=== PATIENT | female | born 1990 | race Caucasian/White ===

== ENCOUNTER → 2017-10-08 12:07 | Outpatient (CLI) | payer OTHER, SELFPAY ==
[2017-10-09 08:25] LABS: HIV Screen 4th Generation wRfx Non Reactive (Non Reactive)
[2017-10-09 11:13] LABS: HSV 2 IgG, Type Spec <0.91 index (0.00-0.90)
== END ==
PROVIDERS: PCP Internal Medicine Adolescent Medicine; Visit Provider Nurse Practitioner Obstetrics & Gynecology
DX: Z01.419 Encounter for gynecological examination (general) (routine) without abnormal findings (principal); Z20.2 Contact with and (suspected) exposure to infections with a predominantly sexual mode of transmission
CPT/HCPCS: 36415; 86703; 86790; G0432

== ENCOUNTER → 2018-01-15 07:38 | Outpatient (CLI) | payer OTHER, SELFPAY ==
--- NOTE | 2018-01-15 07:30 | US_ITS ---
US gallbladder HISTORY: Right upper quadrant pain with nausea ITS.REASON: RUQ PAIN ORDERING PHYSICIAN: Sadie Connors PATIENT AGE: 27 years COMPARISON: FINDINGS: PANCREAS: Unremarkable. No obvious mass or abnormal fluid collection. No ductal dilatation LIVER: No focal liver lesions demonstrated. Homogeneous echogenicity. No intrahepatic biliary ductal dilatation evident RIGHT KIDNEY: Unremarkable. Normal size and echogenicity. No hydronephrosis GALLBLADDER: No gallstones, gallbladder wall thickening, pericholecystic fluid, or biliary dilatation. There are 2 small areas of increased echogenicity along the gallbladder wall consistent with small polyps. IMPRESSION: 1. Small gallbladder polyps. 2. Otherwise negative right upper quadrant ultrasound
== END ==
PROVIDERS: Family Provider Internal Medicine Adolescent Medicine; PCP Internal Medicine Adolescent Medicine; Visit Provider Nurse Practitioner
DX: R10.11 Right upper quadrant pain (principal); R11.0 Nausea
CPT/HCPCS: 76705

== ENCOUNTER → 2018-04-23 14:46 | Outpatient (CLI) | payer OTHER, SELFPAY ==
--- NOTE | 2018-04-23 14:51 | XR_ITS ---
XR foot RT min 3V HISTORY: ITS.REASON: foot pain ORDERING PHYSICIAN: Waqar Romero MD PATIENT AGE: 28 years COMPARISON: None FINDINGS: No fracture or dislocation. No lytic or blastic change. There is normal mineralization.. The joint spaces are well-preserved. No significant degenerative/arthritic changes. No erosive changes evident. IMPRESSION: Negative, no acute finding
== END ==
PROVIDERS: Visit Provider Emergency Medicine
DX: M79.671 Pain in right foot (principal)
CPT/HCPCS: 73630

== ENCOUNTER → 2018-05-25 10:12 | Outpatient (POV) | payer OTHER, SELFPAY ==
[2018-05-25 10:41] VITALS: BP 113/62; PULSE 84; RESP 18; TEMP 36.6; O2SAT 98; BMI 27.4
--- NOTE | 2018-05-25 11:04 | HMH.PMCON ---
Assessment and Plan (1) Back pain Current visit: Yes Status: Chronic Qualifiers: Back pain location: low back pain Chronicity: chronic Back pain laterality: midline Sciatica presence: with sciatica Sciatica laterality: bilateral sciatica Qualified Code(s): M54.41 - Lumbago with sciatica, right side; M54.42 - Lumbago with sciatica, left side; G89.29 - Other chronic pain Category: Medical Code(s): M54.9 - Dorsalgia, unspecified - Assessment and plan all Dx Assessment and Plan for all problems:: We will schedule an MRI for the patient to determine any underlying issues. I do have some concerns in regards to the radicular pattern of her pain. We will also start her on gabapentin 100 mg 1 p.o. 3 times daily. Patient is again to begin this at nighttime and titrate up as tolerated. I will follow-up with the patient after her MRI. Dr. Siddiqui is reviewed this chart and agrees with this plan of care. This note was dictated using voice recognition software and may contain errors or omissions HPI - Data of Consult Consult date: 05/25/18 Requesting Physician: Astrid Murillo APRN Primary Care Provider: Rocky Hamilton MD Family Provider: Rocky Hamilton MD - Consult Narrative Reason for consult: Back pain History of present illness: Ms. Valdes is a 28 year old female presents today for consultation in regards to her low back pain. Patient has had intermittent back pain for years however a few months ago she has had quite an increase in her low back pain in her radiation into her hips and legs. Patient's tried and failed Cymbalta and diclofenac. Patient states she feels a constant pressure. Patient does not have any diagnostic imaging at this point. Patient rates her pain a 6 out of 10 today. Patient states that it is constant, sharp, aching at times. CC: Astrid Murillo APRN [facility] History I have reviewed the patient's past medical history: Yes Medical History: Reports:: Anxiety Denies:: Cancer, Diabetes Mellitus Type 1, Diabetes Mellitus Type 2, MRSA Other Surgeries: Yes: Appendectomy, Dilation and Curettage Amputation: No Fractures: No - *Social History Educational Level: Completed College Smoking Status: Current every day smoker Tobacco Type: cigarettes # Packs/Day (cigarettes): 1 #Yrs smoked (if former smoker): 6 Alcohol Intake: never Substance Use Type: denies use Occupational Status: employed Housing: house Household Members: significant other - Psychiatric History Expresses thoughts of harming self/others: None Suicide Plan Description: No Plan Pschychiatric History:: Reports:: Anxiety *Family Hx:: Hypertension, Hyperlipidemia, Diabetes, Cancer Review of Systems - Review of Systems ROS General: no recent weight change, no fever, no sleep disturbances Respiratory: no cough, no shortness of air, no recurring pulmonary infections Cardiovascular/Peripheral Vascular: No chest pain, No palpitations, no edema, no shortness of breath. Gastrointestinal: no incontinence, normal bowel movements reported Genitourinary: no incontinence Musculoskeletal: Back pain, hip pain Psychiatric: normal mood/ affect Neurological: [denies weakness in extremities], [denies balance issues] Meds Home Medications Medication Instructions Recorded Confirmed Type duloxetine 30 mg capsule,delayed 60 mg PO DAILY cap 10/08/17 05/25/18 History release Allergies Allergy/AdvReac Type Severity Reaction Status Date / Time aspirin [ASPIRIN] Allergy Unknown NA-NAUSEA/V Unverified 08/25/17 14:47 OMITING penicillin G [PENICILLIN G] Allergy Unknown Unverified 08/25/17 14:47 Objective Vital signs: Temp Pulse Resp BP Pulse Ox 97.8 F 84 18 113/62 98 05/25/18 10:41 05/25/18 10:41 05/25/18 10:41 05/25/18 10:41 05/25/18 10:41 Narrative: Physical Exam General: Alert and oriented x3, no acute distress, pleasant and cooperative, [on room air] Alla
--- NOTE | 2018-05-25 11:07 | P.CONS_ITS ---
Assessment and Plan (1) Back pain Current visit: Yes Status: Chronic Qualifiers: Back pain location: low back pain Chronicity: chronic Back pain laterality: midline Sciatica presence: with sciatica Sciatica laterality: bilateral sciatica Qualified Code(s): M54.41 - Lumbago with sciatica, right side; M54.42 - Lumbago with sciatica, left side; G89.29 - Other chronic pain Category: Medical Code(s): M54.9 - Dorsalgia, unspecified - Assessment and plan all Dx Assessment and Plan for all problems:: We will schedule an MRI for the patient to determine any underlying issues. I do have some concerns in regards to the radicular pattern of her pain. We will also start her on gabapentin 100 mg 1 p.o. 3 times daily. Patient is again to begin this at nighttime and titrate up as tolerated. I will follow-up with the patient after her MRI. Dr. Siddiqui is reviewed this chart and agrees with this plan of care. This note was dictated using voice recognition software and may contain errors or omissions HPI - Data of Consult Consult date: 05/25/18 Requesting Physician: Astrid Murillo APRN Primary Care Provider: Rocky Hamilton MD Family Provider: Rocky Hamilton MD - Consult Narrative Reason for consult: Back pain History of present illness: Ms. Valdes is a 28 year old female presents today for consultation in regards to her low back pain. Patient has had intermittent back pain for years however a few months ago she has had quite an increase in her low back pain in her radiation into her hips and legs. Patient's tried and failed Cymbalta and diclofenac. Patient states she feels a constant pressure. Patient does not h ave any diagnostic imaging at this point. Patient rates her pain a 6 out of 10 today. Patient states that it is constant, sharp, aching at times. CC: Astrid Murillo APRN [facility] History I have reviewed the patient's past medical history: Yes Medical History: Reports:: Anxiety Denies:: Cancer, Diabetes Mellitus Type 1, Diabetes Mellitus Type 2, MRSA Other Surgeries: Yes: Appendectomy, Dilation and Curettage Amputation: No Fractures: No - *Social History Educational Level: Completed College Smoking Status: Current every day smoker Tobacco Type: cigarettes # Packs/Day (cigarettes): 1 #Yrs smoked (if former smoker): 6 Alcohol Intake: never Substance Use Type: denies use Occupational Status: employed Housing: house Household Members: significant other - Psychiatric History Expresses thoughts of harming self/others: None Suicide Plan Description: No Plan Pschychiatric History:: Reports:: Anxiety *Family Hx:: Hypertension, Hyperlipidemia, Diabetes, Cancer Review of Systems - Review of Systems ROS General: no recent weight change, no fever, no sleep disturbances Respiratory: no cough, no shortness of air, no recurring pulmonary infections Cardiovascular/Peripheral Vascular: No chest pain, No palpitations, no edema, no shortness of breath. Gastrointestinal: no incontinence, normal bowel movements reported Genitourinary: no incontinence Musculoskeletal: Back pain, hip pain Psychiatric: normal mood/ affect Neurological: [denies weakness in extremities], [denies balance issues] Meds Home Medications Medication Instructions Recorded Confirmed Type duloxetine 30 mg capsule,delayed 60 mg PO DAILY cap 10/08/17 05/25/18 History release Allergies
== END ==
PROVIDERS: Family Provider Internal Medicine Adolescent Medicine; PCP Internal Medicine Adolescent Medicine; Visit Provider Clinical Nurse Specialist Family Health
DX: M54.41 Lumbago with sciatica, right side (principal); M54.42 Lumbago with sciatica, left side; G89.29 Other chronic pain
CPT/HCPCS: 99202

== ENCOUNTER → 2018-05-27 13:22 | Outpatient (CLI) | payer OTHER, SELFPAY ==
--- NOTE | 2018-05-27 13:28 | MR_ITS ---
MR lumbar spine wo con, MR 3-d myelogram/MRCP HISTORY: Worsening low back pain with bilateral hip pain and right leg and buttock pain. Bilateral Hip pain. Intermittent RT leg and buttox pain. ITS.REASON: BACK PAIN ORDERING PHYSICIAN: Astrid Murillo PATIENT AGE: 28 years Comparison: X-RAY 03-14-14 TECHNIQUE: Standard multiplanar multiecho sequences are performed without contrast. 3-D MIP and myelographic images are also rendered and reviewed FINDINGS: There is normal alignment. The spinal cord ends at the L1 level. There is straightening of the lumbar lordosis nonspecific but could be seen with muscle spasm. L1-L2, L2-L3, and L4-L5 have an unremarkable appearance There is minimal bulging disc at L3-L4 without impingement. L5-S1: Concentric bulging disc with a small central/right paracentral disc protrusion. This abuts the anterior aspect of the right S1 nerve root without displacement. IMPRESSION: 1. Concentric bulging disc at L5-S1 with a small central/right paracentral disc protrusion. This abuts the anterior aspect of the right S1 nerve root without displacement 2. No extruded herniated disc or canal stenosis
== END ==
PROVIDERS: Family Provider Internal Medicine Adolescent Medicine; PCP Internal Medicine Adolescent Medicine; Visit Provider Clinical Nurse Specialist Family Health
DX: M54.5 Low back pain (principal)
CPT/HCPCS: 72148; 76376

== ENCOUNTER → 2018-08-26 09:40 | Outpatient (CLI) | payer OTHER, SELFPAY ==
--- NOTE | 2018-08-26 09:41 | XR_ITS ---
XR wrist RT min 3V HISTORY ITS.REASON: GANGLION CYST RT WRIST ORDERING PHYSICIAN: Chelle Calvin MD PATIENT AGE: 28 years Comparison: (10/10/2002. FINDINGS: No fracture or dislocation. No lytic or blastic change. There is normal mineralization.. The joint spaces are well-preserved. No significant degenerative/arthritic changes. No erosive changes evident.. IMPRESSION: Negative wrist
== END ==
PROVIDERS: PCP Internal Medicine Adolescent Medicine; Visit Provider Orthopaedic Surgery
DX: M67.40 Ganglion, unspecified site (principal)
CPT/HCPCS: 73110

== ENCOUNTER 2018-08-26 10:29 | Outpatient (RCR) | payer OTHER, SELFPAY | END 2018-08-27 09:13 | disposition home or self-care (01) | LOC: OT 10:29 | PROVIDERS: Visit Provider Orthopaedic Surgery | DX: M67.40 Ganglion, unspecified site (principal) | CPT/HCPCS: 97763 ==

== ENCOUNTER → 2018-09-02 10:45 | Outpatient (CLI) | payer OTHER, SELFPAY ==
[2018-09-02 10:56] LABS: Microscopic, Urine URINE MICROSCOPIC (MICROSCOPIC)
[2018-09-02 11:04] LABS: Appearance,Urine SL CLOUDY (Clear); Bilirubin,Urine Negative (Negative); Blood, Urine TRACE-I (Negative); Color,Urine YELLOW (Yellow); Glucose,Urine (UA) Negative (Negative); Ketones,Urine Negative (Negative); Leukocyte Esterase,Urine 1+ (Negative); Nitrate,Urine POSITIVE (Negative); PH,Urine 6.5 (5.0-8.5); Protein,Urine Negative (Negative); Urobilinogen,Urine 0.2 EU/dl (0.2)
[2018-09-02 11:50] LABS: Bacteria,Urine 3+ /lpf; RBC,Urine Occasional #/hpf (0-3); Squamous Epithelial Cell,Urine Occasional #/hpf (0-5)
== END ==
PROVIDERS: PCP Internal Medicine Adolescent Medicine; Visit Provider Internal Medicine Adolescent Medicine
DX: N39.0 Urinary tract infection, site not specified (principal); M54.5 Low back pain
CPT/HCPCS: 81001; 87086; 87088; 87186

== ENCOUNTER → 2019-04-23 15:08 | Outpatient (CLI) | payer OTHER, SELFPAY ==
--- NOTE | 2019-04-23 15:33 | CT_ITS ---
PROCEDURE: CT ABDOMEN PELVIS WO CON CLINICAL HISTORY: left FLANK PAIN since (per technologist), UTI 1 month, R/O KIDNEY STONE COMPARISON: [facility] CT abdomen pelvis wo con from 09/05/2018 TECHNIQUE: Axial images obtained with sagittal and coronal reformats. All CT scans at the facility use one or more dose reduction, viz: automated exposure control, ma/kV adjustment per patient size (including targeted exams where dose is matched to indication, i.e. head), or iterative reconstruction technique. FINDINGS: Lower thorax the lung bases are clear. Unremarkable.. Heart normal size Abdomen/pelvis-lack of oral and IV contrast decreases sensitivity Noncontrast images of liver, spleen, pancreas, adrenals unremarkable. Gallbladder unremarkable. No stones. No ductal dilatation Kidney/ tract no hydronephrosis. No current urinary tract obstruction evident Right kidney. Faint barely evident, less than 2 mm developing calculus anterior mid right kidney. Nonobstructive Left kidney but stable nonobstructive 2.5-3 mm calculus at mid to lower left kidney again seen with no hydronephrosis. The ureters appear normal in caliber bilaterally but Pelvis: Urinary bladder appears satisfactory with no stones evident. Anteverted uterus. Moderate-sized with bilateral Essure filament are seen extending into the right and left fallopian tube.-similar appearance previous study. Ovaries appear normal in size bilaterally. Right ovary measures 3.1 cm. Both ovaries likely containing small follicles likely. No significant fluid cul-de-sac No free air. No significant free fluid abdomen or pelvis.. But no significant retroperitoneal nor mesenteric nor pelvic adenopathy GI tract. Generous stool throughout the right colon with moderate stool at the transverse and left colon. Mild wall thickness at the hepatic flexure, may benefit from follow-up colonoscopy. On final review I suspect this long segment of mild wall thickening mainly reflex lack of distention although could not exclude some wall thickening related to either colitis. Doubt other process. Correlation required. Small bowel appears normal in caliber and unremarkable.. Appendix is been removed.. Bones: Mild narrowing L5/S1 disc space with diffuse disc bulge at this level.moderate facet arthropathy lower L-spine well can you make sure that severe and passed along those the dictations match mine generally I a.m. signing off and I thank you IMPRESSION: -No acuteFindings in abdomen or pelvis -No urinary tract obstruction. No hydronephrosis. Ureters unremarkable -Small nonobstructive calculi bilaterally again noted Left kidney with near 3 mm dense calculus. Right kidney with only small faint developing calculus -suggestion mild wall thickening hepatic flexure. On final review favor merely reflects lack of distention in this long segment less likely mild colitis. Doubt other pathology Dictated by: Junior Nunn MD 04/23/2019 17:44 Signed by: <Electronically signed by Junior Nunn MD in [place]> 04/23/2019 17:44
== END ==
PROVIDERS: PCP Internal Medicine Adolescent Medicine; Visit Provider Nurse Practitioner Family
DX: R10.9 Unspecified abdominal pain (principal); N39.0 Urinary tract infection, site not specified
CPT/HCPCS: 74176

== ENCOUNTER → 2019-11-11 14:22 | Outpatient (CLI) | payer OTHER, SELFPAY ==
[2019-11-11 14:41] LABS: Basophils # 0.1 K/mm3 (0-0.2); Basophils % 0.7 % (0.1-2.0); Eosinophils # 0.3 K/mm3 (0.0-0.4); Eosinophils % 3.1 % (0.1-12.0); Hemoglobin 14.3 g/dL (12.2-16.2); Lymphocytes # 3.4 K/mm3 (0.7-4.5); Lymphocytes % 32.8 % (10-50); Mean Corpuscular HGB Conc 34.8 g/dL (31.8-35.4); Mean Corpuscular Hemoglobin 31.9 pg (27.0-31.2); Mean Corpuscular Volume 91.5 fl (81-99); Mean Platelet Volume 7.5 fl (7.4-10.4); Monocytes # 0.4 K/mm3 (0.1-1.0); Monocytes % 4.2 % (1.7-9.3); Neutrophils # 6.1 K/mm3 (1.8-7.8); Neutrophils % 59.1 % (37.0-80.0); Platelet Count 376 K/mm3 (142-424); Red Blood Count 4.49 M/mm3 (4.20-5.40); Red Cell Distribution Width 12.5 % (11.5-17.5); White Blood Count 10.3 K/mm3 (4.8-10.8)
[2019-11-11 15:13] LABS: Alanine Aminotransferase 23 U/L (12-78); Albumin Level 5.1 g/dl (3.5-5.0); Albumin/Globulin Ratio 1.5 (1.1-1.8); Alkaline Phosphatase 72 U/L (38-126); Aspartate Amino Transferase 26 U/L (14-36); Bilirubin,Total 0.2 mg/dl (0.2-1.3); Blood Urea Nitrogen 10 mg/dl (7-17); Calcium 10.2 mg/dl (8.4-10.2); Carbon Dioxide 30 mmol/L (22.0-30.0); Chloride 100 mmol/L (98-107); Estimated Glomerular Filt Rate 98 ml/min (>60); GFR (African American) 118 ML/MIN (>60); Globulin 3.3 g/dL (1.3-3.2); Glucose 79 mg/dl (74-100); Magnesium 1.9 mg/dl (1.6-2.3); Sodium 138 mmol/L (136-145); Total Protein,Serum 8.4 g/dl (6.3-8.2)
[2019-11-11 15:26] LABS: T4 (Thyroxine) 9.4 ug/dl (5.53-11.0); Triiodothryronine (T3) Uptake 30 % (23.5-40.5)
[2019-11-11 15:39] LABS: Thyroid Stimulating Hormone 0.91 uIU/mL (0.465-4.68)
[2019-11-13 09:59] LABS: Iron 85 ug/dL (27-159); Iron Saturation 23 % (15-55); UIBC 278 ug/dL (131-425)
[2019-11-13 13:42] LABS: Triiodothyronine (T3) Total 106 ng/dL (71-180)
[2019-11-15 14:59] LABS: Vitamin D 25 Hydroxy 23.7 ng/mL (30.0-100.0)
== END ==
PROVIDERS: PCP Internal Medicine Adolescent Medicine; Visit Provider Family Medicine
DX: Z79.899 Other long term (current) drug therapy (principal); E55.9 Vitamin D deficiency, unspecified
CPT/HCPCS: 80053; 82652; 83540; 83550; 83735; 84436; 84443; 84479; 84480; 85025

== ENCOUNTER → 2020-01-05 18:03 | Outpatient (CLI) | payer OTHER, SELFPAY ==
[2020-01-05 19:49] LABS: Ferritin 26.8 ng/ml (6.24-137)
== END ==
PROVIDERS: PCP Internal Medicine Adolescent Medicine; Visit Provider Nurse Practitioner Family
DX: E83.10 Disorder of iron metabolism, unspecified (principal); G25.81 Restless legs syndrome; N92.0 Excessive and frequent menstruation with regular cycle
CPT/HCPCS: 82728

== ENCOUNTER → 2020-01-10 13:44 | Outpatient (CLI) | payer OTHER, SELFPAY | PROVIDERS: PCP Internal Medicine Adolescent Medicine; Visit Provider Nurse Practitioner Family | DX: G47.19 Other hypersomnia (principal); R06.81 Apnea, not elsewhere classified; Z68.32 Body mass index [BMI] 32.0-32.9, adult; R63.5 Abnormal weight gain; R06.83 Snoring; G25.81 Restless legs syndrome; R53.83 Other fatigue; G47.9 Sleep disorder, unspecified; G47.00 Insomnia, unspecified; G47.30 Sleep apnea, unspecified | CPT/HCPCS: 95806 ==

== ENCOUNTER → 2020-02-05 17:29 | Outpatient (CLI) | payer OTHER, SELFPAY ==
[2020-02-05 18:15] LABS: Coronavirus 19 IgG Antibody Negative (Negative); Coronavirus 19 IgM Antibody Negative (Negative)
== END ==
PROVIDERS: PCP Emergency Medicine; Visit Provider Emergency Medicine
DX: Z03.818 Encounter for observation for suspected exposure to other biological agents ruled out (principal)
CPT/HCPCS: 86328

== ENCOUNTER 2020-07-09 10:03 | Emergency (ER) | payer OTHER, SELFPAY ==
[2020-07-09 10:45] VITALS: BP 133/92; PULSE 100; RESP 16; TEMP 36.6; O2SAT 96; BMI 29.9
--- NOTE | 2020-07-09 10:49 | XR_ITS ---
PROCEDURE: XR CHEST 2V CLINICAL HISTORY: cough Cough and congestion COMPARISON: No exams were available for comparison FINDINGS: The cardiomediastinal silhouette and pulmonary vascularity are within normal limits. The lungs are clear without infiltrates, suspicious nodules, or pleural effusions. No acute bony abnormalities. IMPRESSION: No acute findings. Dictated by: Carlos Lockwood MD 07/09/2020 11:30 Carlos Lockwood MD in [place] 07/09/2020 11:30
--- NOTE | 2020-07-09 11:08 | HMH.EDUTC ---
[facility] [place] Clinical Impression: Acute bronchitis Qualifiers: Bronchitis organism: unspecified organism Qualified Code(s): J20.9 - Acute bronchitis, unspecified Pharyngitis Qualifiers: Pharyngitis/tonsillitis etiology: unspecified etiology Qualified Code(s): J02.9 - Acute pharyngitis, unspecified Disposition: Home, Self-Care Condition on Discharge: Good Instructions: Acute Bronchitis, DI for Acute Bronchitis, Preventing the Spread of Coronavirus Discharge Instructions Additional Instructions: Drink plenty of fluids. Take tylenol for pain or fever. Take the medications as directed. Follow up with your regular doctor. GO TO THE ER FOR ANY WORSENING SYMPTOMS Prescriptions: Albuterol Sulfate [Albuterol Sulfate Hfa] 2 puffs IH Q6HP PRN 30 Days #1 hfa.aer.ad PRN Reason: Shortness Of Breath Transmission Status: Received by [facility] Ondansetron [Zofran 4mg ODT] 4 mg PO Q8HP PRN #20 tab.rapdis PRN Reason: Nausea Transmission Status: Received by [facility] methylPREDNISolone [Medrol] 4 mg PO DIRECTED 6 Days #21 tab.ds.pk Transmission Status: Received by [facility] Azithromycin [Z-Ld 250mg Tab*] 250 mg PO UD DOSE PK #6 tab Transmission Status: Received by [facility] Referrals: Rocky Hamilton MD [Primary Care Provider] - Forms: Work/School Release Time of Disposition: 11:37 Medical Decision Making - Medical Records Medical records reviewed: No: I reviewed the patient's medical records. - [place] Inquiry Pt receiving controlled substance: No Vital Signs: 07/09/20 10:45 07/09/20 11:43 Temperature 97.8 F 97.8 F Temperature Source Oral Pulse Rate 100 H Pulse Rate [Right Brachial] 100 H Respiratory Rate 16 16 Blood Pressure 133/92 H Blood Pressure [Right Arm] 133/92 H Blood Pressure Mean [Right Arm] 105 Blood Pressure Source [Right Arm] Automatic Cuff Blood Pressure Position [Right Arm] Sitting 02 Sat by Pulse Oximetry 96 Oxygen Delivery Method Room Air - Lab Data Lab results reviewed: Yes: I reviewed the patient's lab results. Orders (Tests/Meds): ED MEDICATIONS Discontinued Medications Generic Name Dose Route Start Last Admin Trade Name Freq PRN Reason Stop Dose Admin Ceftriaxone Sodium 1 gm 07/09/20 11:08 07/09/20 11:27 Ceftriaxone 1gm Vial IM 07/09/20 11:09 1 gm ONCE ONE Administration Protocol Lidocaine HCl 0 ml 07/09/20 11:08 07/09/20 11:27 Lidocaine 1% 5ml Pf Vial IM 07/09/20 11:09 2.1 ml ONCE ONE Administration Methylprednisolone Sodium Succinate 125 mg 07/09/20 11:08 07/09/20 11:27 Methylprednisolone Sod Succ 125mg Vial IM 07/09/20 11:09 125 mg ONCE ONE Administration ORDERS Category Date Time Status Covid-19 Nasal PCR ([facility]) Routine Lab 07/09/20 11:15 Received - Radiology Data #1 Image(s): Chest Image Reviewed: Yes I reviewed the patient's radiology image, Yes I have reviewed radiologist's interpretation Preliminary Findings: Normal/NAD, No Infiltrates Seen PROCEDURE: XR CHEST 2V CLINICAL HISTORY: cough Cough and congestion COMPARISON: No exams were available for comparison FINDINGS: The cardiomediastinal silhouette and pulmonary vascularity are within normal limits. The lungs are clear without infiltrates, suspicious nodules, or pleural effusions. No acute bony abnormalities. IMPRESSION: No acute findings. Dictated by: Carlos Lockwood MD 07/09/2020 11:30 in [facility] HPI - General Stated complaint: chest congestion Time Seen by Provider: 07/09/20 11:09 Mode of Arrival: Ambulatory Source of Information: Patient Limitations: No Limitations Description of Symptoms (Recalled from Triage Doc. by RN): PATIENT C/O NASAL AND CHEST CONGESTION AND COUGH SINCE LAST THURSDAY HEENT Symptoms (Recalled from RN notes): Yes Resp Symptoms (Recalled from RN notes): Yes Skin Symptoms (Recalled from RN notes): No MS Symptoms (Recalled from R
[2020-07-09 11:43] VITALS: BP 133/92; PULSE 100; RESP 16; TEMP 36.6; O2SAT 96
== END 2020-07-09 11:45 | disposition home or self-care (01) ==
PROVIDERS: Emergency Provider Nurse Practitioner Family; PCP Internal Medicine Adolescent Medicine
DX: Z20.828 Contact with and (suspected) exposure to other viral communicable diseases (principal); J20.9 Acute bronchitis, unspecified; J02.9 Acute pharyngitis, unspecified; F41.9 Anxiety disorder, unspecified; Z88.0 Allergy status to penicillin; F17.210 Nicotine dependence, cigarettes, uncomplicated; Z79.899 Other long term (current) drug therapy
CPT/HCPCS: 71046; 96372; 99202; U0003

== ENCOUNTER 2021-05-13 09:29 | Outpatient (CLI) | payer OTHER, SELFPAY ==
[2021-05-13 09:50] VITALS: BMI 26.6
== END 2021-05-13 09:53 | disposition home or self-care (01) ==
LOC: UTC.OUT 09:33
PROVIDERS: PCP Nurse Practitioner; Visit Provider Nurse Practitioner
DX: J20.9 Acute bronchitis, unspecified (principal); J02.9 Acute pharyngitis, unspecified

== ENCOUNTER → 2021-06-10 15:00 | Outpatient (POV) | payer OTHER, SELFPAY ==
[2021-06-10 15:04] VITALS: BP 153/78; PULSE 84; RESP 20; TEMP 36.8; O2SAT 100; BMI 27.4
--- NOTE | 2021-06-10 16:19 | HMH.PAINSOAP ---
[facility] Pain Management SOAP Note Subjective:: Patient is a pleasant 31-year-old white female who presents today for worsening low back pain with radiation into right leg. Patient was seen in the clinic on 06/04/2018. At that time the patient was noted to have an herniated disc. She did undergo lumbar epidural steroid injection and got significant relief. The patient's pain has returned but is worse in nature. She is having pain in the right low back area with radiation into the right buttock, right hip, right groin and right leg. The pain was initially to the hamstring but is now radiating to the right foot. The patient is in notable pain during discussion today. She rates her pain an 8 out of 10. 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 The patient has tried diclofenac and Cymbalta in the past with no significant relief. She has had gabapentin in the past low-dose which did give her some relief. We discussed restarting the medication and adding tramadol until she is able to undergo injective therapy. Patient's pain is worse with standing and walking. She appears to be having pain even with sitting at this time. She is limited with ambulation due to her pain. She has tried ice and heat therapies, chiropractic therapy, home stretching, and physical therapy for more than 6 weeks in the past. Review of Systems General: No recent weight changes, no fever, no sleep disturbances Respiratory: No cough, no shortness of air, no recurring pulmonary infections Cardiovascular/peripheral vascular: No chest pain, no palpitations, no edema, no shortness of breath Gastrointestinal: No new onset incontinence, normal bowel movements reported Genitourinary: No new onset incontinence Musculoskeletal: Low back pain with radiation into the right buttock, right hip, right groin, right leg, right foot Psychiatric: [Normal mood/affect] Neurological: [Denies weakness in extremities], [denies balance issues] Objective:: Physical exam General: Alert and oriented x3, no acute distress, pleasant and cooperative, [on room air] Lungs: Respirations even and unlabored, symmetrical chest expansion Eyes: PERRL Musculoskeletal: Flexion and extension of lumbar [spine] somewhat guarded secondary to pain, [antalgic gait noted] Neurological: Speech clear, no gross sensory deficit Assessment:: Degenerative disc disease lumbar spine with lumbar radiculopathy symptoms, herniated disc L5-S1 Plan:: Patient does have a history of L5-S1 herniated disc. She did undergo injective therapy in 2019 and got significant relief at that time. Unfortunately, the pain has returned but is worse in nature. The pain is radiating into the patient's right lower extremity and to her foot. We will start the patient on gabapentin 300 mg 1 tablet p.o. twice daily. She is taking gabapentin in the past which gave her significant relief. We will also order the patient tramadol 50 mg 1 tablet p.o. 3 times daily until she is able to undergo injective therapy. 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 She has tried chiropractic therapy, home stretching and ice and heat therapy most recently. Anti-inflammatories are not helping the patient. We will schedule her for lumbar epidural steroid injection at L5-S1. She is not on anticoagulation therapy. We will see her back after her injection for reevaluation of symptoms. Possible side effects of corticosteroids have been discussed with the patient. Risks and benefits of the procedure have been explained to the patient. Patient would like to proceed with the procedure. Patient has been instructed to contact the clinic with any concerns before the next appointment. Dr. Siddiqui has reviewed this note and agrees with this plan of care. This note was dictated using voice recognition software and make contain errors or omissions. H
== END ==
LOC: SC.PAIN 15:00
PROVIDERS: Visit Provider Clinical Nurse Specialist Family Health
DX: M51.16 Intervertebral disc disorders with radiculopathy, lumbar region (principal); M51.26 Other intervertebral disc displacement, lumbar region
CPT/HCPCS: 99212; G0463

== ENCOUNTER 2021-06-13 15:51 | Outpatient (CLI) | payer OTHER, SELFPAY ==
[2021-06-20 13:07] VITALS: BMI 28.3
== END 2021-06-13 19:40 | disposition home or self-care (01) ==
PROVIDERS: PCP Internal Medicine Adolescent Medicine; Visit Provider Nurse Practitioner
DX: M54.50 Low back pain, unspecified (principal)
CPT/HCPCS: 96372

== ENCOUNTER 2021-06-21 09:57 | Day surgery (SDC) | payer OTHER, SELFPAY ==
[2021-06-21 10:02] VITALS: BP 133/84; PULSE 111; RESP 18; TEMP 36.8; O2SAT 98; BMI 27.4
[2021-06-21 10:17] VITALS: BP 123/77; PULSE 79; PULSE 80; RESP 18; O2SAT 100
--- NOTE | 2021-06-21 10:25 | P.PCN_ITS ---
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 She has been having some increasing pain in her back rating down her right leg. She had an epidural steroid injection approximately 3 years ago this helped her tremendously. Her pain is now come back worse in her back and down the right leg will do repeat lumbar epidural steroid injection to help her with her pain symptoms. Procedure Details:: Informed consent was obtained and the risk and benefits of the procedure was explained to the patient. The patient was taken to the procedure room. The patient was placed prone on the procedure table. The patient was prepped and draped in sterile fashion. C-arm fluoroscopy was used to view the lumbar spine. Skin and subcutaneous tissues were anesthetized using lidocaine. I placed an 18-gauge epidural needle and advanced into the L4-L5 interspace using fluorosc opic guidance and [id number] to air. After confirmation of needle placement in the epidural space with dye I injected 2 mL of lidocaine 1.5% with Depo-Medrol 80 mg. Patient tolerated the procedure well with no complications. Plan and Disposition:: We will follow-up with her in 2 weeks. Will reevaluate symptoms at that time.
[2021-06-21 10:34] VITALS: BP 118/75; PULSE 99; RESP 18; O2SAT 97
== END 2021-06-21 10:25 | disposition home or self-care (01) ==
LOC: SC.PAINP 09:58
PROVIDERS: PCP Internal Medicine Adolescent Medicine; Visit Provider Anesthesiology
DX: M51.16 Intervertebral disc disorders with radiculopathy, lumbar region (principal); M46.1 Sacroiliitis, not elsewhere classified; F41.9 Anxiety disorder, unspecified; Z90.49 Acquired absence of other specified parts of digestive tract
CPT/HCPCS: 62323; J1040; Q9966

== ENCOUNTER → 2021-07-24 15:10 | Outpatient (CLI) | payer OTHER, SELFPAY | PROVIDERS: PCP Nurse Practitioner; Visit Provider Nurse Practitioner | DX: M54.30 Sciatica, unspecified side (principal) ==

== ENCOUNTER 2021-07-26 11:42 | Day surgery (SDC) | payer OTHER, SELFPAY ==
[2021-07-26 11:44] VITALS: BP 131/80; PULSE 77; RESP 18; TEMP 36.8; O2SAT 100; BMI 27.1
[2021-07-26 12:32] VITALS: BP 116/79; PULSE 77; RESP 18; O2SAT 99
[2021-07-26 12:33] VITALS: PULSE 79; RESP 18; O2SAT 99
--- NOTE | 2021-07-26 12:44 | P.PCN_ITS ---
- Procedure Date: 07/26/21 Time: 12:44 Anesthesiologist:: Jailyn Crabtree MD Complications:: None Pre-procedure Diagnosis:: Degenerative disc disease of the lumbar spine with lumbar radiculopathy Post-procedure Diagnosis:: Same Indications for Procedure:: Patient is a very pleasant 31-year-old white female who presents today with chronic low back pain radiating to her legs related to the above diagnosis. She has tried and failed conservative treatment occluding oral pain medications and home stretching program for greater than 6 weeks. She previously underwent a lumbar epidural steroid injection approximately 3 years ago and she states that helped significantly for this pain. The plan for today is for the patient to undergo lumbar epidural steroid injection under fluoroscopy at L5-S1 #2. Procedure Details:: Informed consent was obtained and the risk and benefits of the procedure was explained to the patient. The patient was taken to the procedure room. The patient was placed prone on the procedure table. The patient was prepped and draped in sterile fashion. C-arm fluoroscopy was used to view the lumbar spine. Skin and subcutaneous tissues were anesthetized using lidocaine. I placed an 18-gauge epidural needle and advanced into the L5-S1 interspace using fluoroscopic guidance and [id number] to air and saline. After confirm ation of needle placement in the epidural space with dye I injected 1 mL of lidocaine 1.0% with Depo-Medrol 80 mg. Patient tolerated the procedure well with no complications. Plan and Disposition:: We will follow-up with this patient in 2 weeks. Will reevaluate pain symptoms at that time.
[2021-07-26 13:15] VITALS: BP 140/92; PULSE 78; RESP 20; O2SAT 100
== END 2021-07-26 13:15 | disposition home or self-care (01) ==
LOC: SC.PAINP 11:43
PROVIDERS: PCP Internal Medicine Adolescent Medicine; Visit Provider Anesthesiology Pain Medicine
DX: M51.16 Intervertebral disc disorders with radiculopathy, lumbar region (principal); F41.9 Anxiety disorder, unspecified; Z72.0 Tobacco use; F32.A Depression, unspecified; Z88.0 Allergy status to penicillin; Z88.6 Allergy status to analgesic agent
CPT/HCPCS: 62323; J1040; Q9966

== ENCOUNTER 2021-07-27 12:30 | Emergency (ER) | payer OTHER, SELFPAY ==
[2021-07-27 12:40] VITALS: BP 120/65; PULSE 82; RESP 16; TEMP 36.9; O2SAT 100; BMI 25.7
[2021-07-27 12:52] VITALS: BMI 25.7
--- NOTE | 2021-07-27 13:12 | HMH.EDGENADL ---
ED Disposition Clinical Impression: Lumbar radiculopathy, acute Disposition: Home, Self-Care Condition on Discharge: Good Prescriptions: Oxycodone HCl [Oxycodone 5mg tab (IR)] 5 mg PO Q6 #10 tab Transmission Status: Sent to [facility] Referrals: Rocky Hamilton MD [Primary Care Provider] - - Critical Care Critical Care Time: No Attestation: On 07/27/21, the high probability of a clinically significant, sudden or life threatening deterioration of the following system(s) required my full and direct attention, intervention and personal management. The time I documented below is in addition to time spent performing reported procedures but includes the following listed in this critical care notation. Medical Decision Making - Medical Records Medical records reviewed: Yes: I reviewed the patient's medical records. - Darwin Inquiry Pt receiving controlled substance: Yes Darwin was queried for this patient: Yes Risks and benefits of using a controlled substance: were discussed with pt by me Vital Signs: 07/27/21 12:40 07/27/21 13:30 07/27/21 14:00 Temperature 98.5 F Temperature Source Oral Pulse Rate 82 77 Pulse Rate [Left Radial] 82 Respiratory Rate 16 16 15 Blood Pressure 138/81 147/88 H Blood Pressure [Right Arm] 120/65 Blood Pressure Mean 100 107 Blood Pressure Mean [Right Arm] 83 02 Sat by Pulse Oximetry 100 100 99 Oxygen Delivery Method Room Air Orders (Tests/Meds): ED MEDICATIONS Generic Name Dose Route Start Last Admin Trade Name Freq PRN Reason Stop Dose Admin Sodium Chloride 10 ml 07/27/21 12:57 Sodium Chloride 0.9% 10ml Vial IV 08/26/21 12:56 NEEDED PRN to Dilute Lorazepam inj Sodium Chloride 10 ml 07/27/21 13:42 Sodium Chloride 0.9% 10ml Vial IV 08/26/21 13:41 NEEDED PRN to Dilute Lorazepam inj Discontinued Medications Generic Name Dose Route Start Last Admin Trade Name Freq PRN Reason Stop Dose Admin Dexamethasone Sodium Phosphate 8 mg 07/27/21 12:44 07/27/21 13:03 Dexamethasone 4mg/Ml 1ml Vial IV 07/27/21 12:45 8 mg ONCE ONE Administration Ketorolac Tromethamine 15 mg 07/27/21 12:44 07/27/21 13:03 Ketorolac 30mg/Ml Vial IV 07/27/21 12:45 15 mg ONCE ONE Administration Lorazepam 0.5 mg 07/27/21 12:44 07/27/21 12:58 Lorazepam 0.5mg Tablet PO 07/27/21 12:45 0.5 mg ONCE ONE Administration Lorazepam 0.5 mg 07/27/21 12:57 07/27/21 13:03 Lorazepam 2mg/Ml Vial IV 07/27/21 12:58 0.5 mg ONCE ONE Administration Lorazepam 1 mg 07/27/21 13:42 07/27/21 13:46 Lorazepam 2mg/Ml Vial IV 07/27/21 13:43 1 mg ONCE ONE Administration Morphine Sulfate 4 mg 07/27/21 12:46 07/27/21 13:03 Morphine 4mg/Ml Syringe IV 07/27/21 12:47 4 mg ONCE ONE Administration Ondansetron HCl 4 mg 07/27/21 12:52 07/27/21 13:04 Ondansetron 4mg/2ml Vial IV 07/27/21 12:53 4 mg ONCE ONE Administration Medical Decision Narrative: Patient is a 31-year-old female presents the ED today with right lower extremity and right lower back radicular back pain. Patient is well-appearing on initial evaluation although does appear to be in severe pain and is having walking secondary to pain. Initial examination is reassuring with no evidence of motor weakness or sensory change to the right lower extremity, will reevaluate after pain medications will administer 4 mg of IV morphine, 8 mg of IV Decadron, 0.5 mg of IV Ativan of IV Toradol will reassess after these interventions. Personal diagnosis for this patient includes radicular back pain, muscle spasm, cauda equina syndrome. I believe the risk of cauda equina syndrome is low in this patient with no evidence of saddle anesthesia, no muscular weakness, no overflow incontinence. Patient reassessed, still having some residual pain we prescribed an additional milligram of IV Ativan. Patient is felt symptomatic relief after this, will be able to be dis
[2021-07-27 13:30] VITALS: BP 138/81; PULSE 82; RESP 16; O2SAT 100
[2021-07-27 14:00] VITALS: BP 147/88; PULSE 77; RESP 15; O2SAT 99
[2021-07-27 14:30] VITALS: BP 154/87; PULSE 89; RESP 20; O2SAT 99
[2021-07-27 15:00] VITALS: BP 133/69; PULSE 86; RESP 18; O2SAT 100
[2021-07-27 15:13] VITALS: BP 133/69; PULSE 86; RESP 18; TEMP 36.9; O2SAT 100
== END 2021-07-27 15:13 | disposition home or self-care (01) ==
PROVIDERS: Emergency Provider Student in an Organized Health Care Education/Training Program; PCP Internal Medicine Adolescent Medicine
DX: M54.16 Radiculopathy, lumbar region (principal); F41.9 Anxiety disorder, unspecified; F17.210 Nicotine dependence, cigarettes, uncomplicated
CPT/HCPCS: 96374; 96375; 99281; J2405

== ENCOUNTER 2021-09-28 09:47 | Emergency (ER) | payer OTHER, SELFPAY ==
--- NOTE | 2021-09-28 09:38 | ECG_ITS ---
APPROVED REPORT Exam: Resting ECG HR:116 bpm ECG Measurements Heart Rate 116 AXES WY 108 P 38 QRSd 75 QRS 64 QT 338 T 58 QTc 407 Conclusion SINUS TACHYCARDIA WITH SHORT WY INTERVAL POSSIBLE RIGHT VENTRICULAR CONDUCTION DELAY [RSR (QR) IN V1/V2] NONSPECIFIC ST & T-WAVE ABNORMALITY ABNORMAL RHYTHM ECG UNCONFIRMED REPORT Electronically signed by : Rocky Hamilton MD 09/29/2021 14:06:38
[2021-09-28 09:48] VITALS: BP 153/82; PULSE 112; RESP 20; TEMP 37.8; O2SAT 100; BMI 27.6
--- NOTE | 2021-09-28 09:59 | HMH.EDGENADL ---
ED Disposition Clinical Impression: Chest pain Disposition: Home, Self-Care Condition on Discharge: Good Prescriptions: Cefdinir [Omnicef 300mg Capsule] 300 mg PO BID #20 cap Transmission Status: Pending to [facility] Ondansetron [Zofran 4mg ODT] 4 mg PO TIDP PRN #12 tab PRN Reason: Nausea Transmission Status: Pending to Clinic [facility] - Critical Care Critical Care Time: No Attestation: On , the high probability of a clinically significant, sudden or life threatening deterioration of the following system(s) required my full and direct attention, intervention and personal management. The time I documented below is in addition to time spent performing reported procedures but includes the following listed in this critical care notation. Medical Decision Making - Darwin Inquiry Pt receiving controlled substance: No Vital Signs: 09/28/21 09:48 09/28/21 10:46 Temperature 100.0 F H Temperature Source Oral Pulse Rate 89 Pulse Rate [Right] 112 H Respiratory Rate 20 Blood Pressure [Right Arm] 153/82 H Blood Pressure Mean [Right Arm] 105 Blood Pressure Source [Right Arm] Automatic Cuff Blood Pressure Position [Right Arm] Sitting 02 Sat by Pulse Oximetry 100 100 Oxygen Delivery Method Room Air Room Air - Lab Data Lab Results 09/28/21 09:50: WBC 9.4, RBC 4.49, Hgb 14.2, Hct 44.0, MCV 98.0, MCH 31.6 H, MCHC 32.2, RDW 12.9, Plt Count 412, MPV 7.9, Neut % (Auto) 86.0 H, Lymph % (Auto) 5.8 L, [place] % (Auto) 5.9, Eos % (Auto) 0.8, Baso % (Auto) 1.5, Neut # (Auto) 8.1 H, Lymph # (Auto) 0.5 L, [place] # (Auto) 0.6, Eos # (Auto) 0.1, Baso # (Auto) 0.1 09/28/21 09:50: Sodium 142, Potassium 3.8, Chloride 105, Carbon Dioxide 22, Anion Gap 18.8 H, BUN 10, Creatinine 0.70, Estimated Creat Clear 136, Estimated GFR 96, Est GFR ( Amer) 117, Glucose 130 H, Calcium 10.2, Total Bilirubin 0.5, AST 30, ALT 30, Alkaline Phosphatase 78, Troponin I < 0.01, Total Protein 8.6 H, Albumin 5.3 H, Globulin 3.3 H, Albumin/Globulin Ratio 1.6, Lipase 132 09/28/21 10:10: Urine Color Yellow, Urine Appearance Sl cloudy, Urine pH 8.0, Ur Specific [place] 1.020, Urine Protein Trace, Urine Glucose (UA) Negative, Urine Ketones Trace, Urine Blood Negative, Urine Nitrate Positive, Urine Bilirubin Negative, Urine Urobilinogen 0.2, Ur Leukocyte Esterase Negative, Urine RBC 3-5, Urine WBC Occasional, Ur Squamous Epith Cells Occasional, Urine Bacteria 2+ 09/28/21 10:10: Urine HCG, Qual Negative 09/28/21 10:15: SARS-CoV-2 (PCR) Detected A, Influenza A Untype (PCR) Not detected, Influenza Type B (PCR) Not detected Result diagrams: 09/28/21 09:50 09/28/21 09:50 Orders (Tests/Meds): ED MEDICATIONS Discontinued Medications Generic Name Dose Route Start Last Admin Trade Name Komal PRN Reason Stop Dose Admin Acetaminophen 1,000 mg 09/28/21 10:03 09/28/21 10:26 Acetaminophen 500mg Tab PO 09/28/21 10:04 1,000 mg ONCE ONE Administration Lactated Ringer's 500 mls @ 999 mls/hr 09/28/21 10:15 09/28/21 11:25 Lactated Ringer's 1000 Ml Bag IV 09/28/21 11:15 999 mls/hr .Q31M YAMILEX Administration Ketorolac Tromethamine 15 mg 09/28/21 11:00 09/28/21 11:04 Ketorolac 30mg/Ml Vial IV 09/28/21 11:01 15 mg ONCE ONE Administration Ondansetron HCl 4 mg 09/28/21 10:02 09/28/21 10:26 Ondansetron 4mg/2ml Vial IV 09/28/21 10:03 4 mg ONCE ONE Administration Promethazine HCl 12.5 mg 09/28/21 10:45 09/28/21 10:49 Promethazine Hcl 25mg/Ml 1ml Vial IV 09/28/21 10:46 12.5 mg ONCE ONE Administration Sodium Chloride 25 ml 09/28/21 10:45 09/28/21 10:49 Sodium Chloride 0.9% 25ml Bag IV 09/28/21 10:46 25 ml ONCE ONE Administration ORDERS Category Date Time Status Complete Blood Count Auto Diff Stat Lab 09/28/21 09:50 Results Troponin I Q3H Lab 09/28/21 13:15 Ordered Troponin I Q3H Lab 09/28/21 16:15 Ordered Urine Culture Stat Micro 09/28/21 10:10 Received Medical Decisio
--- NOTE | 2021-09-28 10:02 | XR_ITS ---
PROCEDURE INFORMATION: Exam: XR Chest Exam date and time: 09/28/2021 10:02 AM Age: 31 years old Clinical indication: Shortness of breath; Additional info: Shortness of breath, cough TECHNIQUE: Imaging protocol: XR of the chest. Views: 1 view. COMPARISON: CR XR CHEST 2V 07/09/2020 10:48 AM FINDINGS: Lungs: Unremarkable. No consolidation. Pleural spaces: Unremarkable. No pleural effusion. No pneumothorax. Heart/Mediastinum: Unremarkable. No cardiomegaly. Bones/joints: Unremarkable. IMPRESSION: No acute findings.
[2021-09-28 10:10] LABS: Basophils # 0.1 K/mm3 (0-0.2); Basophils % 1.5 % (0.1-2.0); Eosinophils # 0.1 K/mm3 (0.0-0.4); Eosinophils % 0.8 % (0.1-12.0); Hemoglobin 14.2 g/dL (12.2-16.2); Lymphocytes # 0.5 K/mm3 (0.7-4.5); Lymphocytes % 5.8 % (10-50); Mean Corpuscular HGB Conc 32.2 g/dL (31.8-35.4); Mean Corpuscular Hemoglobin 31.6 pg (27.0-31.2); Mean Platelet Volume 7.9 fl (7.4-10.4); Monocytes # 0.6 K/mm3 (0.1-1.0); Monocytes % 5.9 % (1.7-9.3); Neutrophils # 8.1 K/mm3 (1.8-7.8); Platelet Count 412 K/mm3 (142-424); Red Blood Count 4.49 M/mm3 (4.20-5.40); Red Cell Distribution Width 12.9 % (11.5-17.5); White Blood Count 9.4 K/mm3 (4.8-10.8)
[2021-09-28 10:13] LABS: Chloride 105 mmol/L (98-107); Sodium 142 mmol/L (136-145)
[2021-09-28 10:14] LABS: Potassium 3.8 mmoL/L (3.5-5.1)
[2021-09-28 10:16] LABS: Alanine Aminotransferase 30 U/L (12-78); Albumin Level 5.3 g/dl (3.5-5.0); Alkaline Phosphatase 78 U/L (38-126); Anion Gap 18.8 mEq/L (5-15); Aspartate Amino Transferase 30 U/L (14-36); Bilirubin,Total 0.5 mg/dl (0.2-1.3); Blood Urea Nitrogen 10 mg/dl (7-17); Carbon Dioxide 22 mmol/L (22.0-30.0); Creatinine Clearance Estimated 136 mL/min (50-200); Estimated Glomerular Filt Rate 96 ml/min (>60); GFR (African American) 117 ML/MIN (>60); Lipase 132 U/L (23-300); MANUAL DIFFERENTIAL MANUAL DIFFERENTIAL (MANUAL DIFF)
[2021-09-28 10:16] LABS: Microscopic, Urine URINE MICROSCOPIC (MICROSCOPIC); Urine Pregnancy, HCG Qual. Negative (Negative)
[2021-09-28 10:17] LABS: Albumin/Globulin Ratio 1.6 (1.1-1.8); Calcium 10.2 mg/dl (8.4-10.2); Globulin 3.3 g/dL (1.3-3.2); Glucose 130 mg/dl (74-100); Total Protein,Serum 8.6 g/dl (6.3-8.2)
[2021-09-28 10:17] LABS: Appearance,Urine SL CLOUDY (Clear); Bilirubin,Urine Negative (Negative); Blood, Urine Negative (Negative); Color,Urine YELLOW (Yellow); Glucose,Urine (UA) Negative (Negative); Ketones,Urine TRACE (Negative); Leukocyte Esterase,Urine Negative (Negative); Nitrate,Urine POSITIVE (Negative); Protein,Urine TRACE (Negative); Urobilinogen,Urine 0.2 EU/dl (0.2)
[2021-09-28 10:31] LABS: Troponin I < 0.01 ng/ml (0.00-0.034)
[2021-09-28 10:46] VITALS: PULSE 89; O2SAT 100
[2021-09-28 10:46] LABS: Influenza A, PCR Not Detected (NotDetected); Influenza B, PCR Not Detected (NotDetected)
--- NOTE | 2021-09-28 10:46 | PC.NURSE ---
10:46; MD at bedside
[2021-09-28 11:08] VITALS: BP 105/57; PULSE 94; RESP 13; O2SAT 100
[2021-09-28 11:15] LABS: Bacteria,Urine 2+ /lpf; Squamous Epithelial Cell,Urine Occasional #/hpf (0-5); WBC,Urine Occasional #/hpf (0-3)
[2021-09-28 11:30] VITALS: BP 92/54; PULSE 82; RESP 17; O2SAT 97
[2021-09-28 11:30] LABS: Coronavirus 19, PCR Detected (NotDetected)
[2021-09-28 11:57] VITALS: BP 92/54; PULSE 66; O2SAT 100
[2021-09-28 12:06] VITALS: BP 100/60; PULSE 60; RESP 16; TEMP 37.2; O2SAT 98
[2021-09-28 12:06] LABS: Eosinophils % 1 % (0-3); Lymphocytes % 6 % (10-50); Monocytes % 3 % (2-9); Neutrophils % 88 % (42-76); RBC Morphology Normal; Total Cells Counted 100
[2021-09-28 12:07] LABS: Platelet Estimate Normal
== END 2021-09-28 12:08 | disposition home or self-care (01) ==
PROVIDERS: Emergency Provider Student in an Organized Health Care Education/Training Program; PCP Internal Medicine Adolescent Medicine
DX: U07.1 COVID-19 (principal); R07.9 Chest pain, unspecified; R10.13 Epigastric pain; F41.9 Anxiety disorder, unspecified; F17.210 Nicotine dependence, cigarettes, uncomplicated
CPT/HCPCS: 71045; 80053; 81001; 81025; 83690; 84484; 85007; 85025; 87086; 87088; 87186; 93005; 96365; 96375; 99283; C9803; J2405; U0003; U0005

== ENCOUNTER 2021-11-01 16:00 | Outpatient (CLI) | payer OTHER, SELFPAY ==
[2021-11-01 16:19] VITALS: BMI 25.0
== END 2021-11-01 16:21 | disposition home or self-care (01) ==
PROVIDERS: PCP Internal Medicine Adolescent Medicine; Visit Provider Nurse Practitioner Family
DX: M54.31 Sciatica, right side (principal)
CPT/HCPCS: 96372

== ENCOUNTER 2021-11-08 10:40 | Outpatient (POV) | payer OTHER, SELFPAY ==
[2021-11-08 10:45] VITALS: BP 147/83; PULSE 91; RESP 20; TEMP 36.6; O2SAT 99; BMI 26.6
[2021-11-08 10:55] VITALS: BP 148/89; PULSE 95; RESP 18; O2SAT 97
--- NOTE | 2021-11-08 10:59 | HMH.PMPROC ---
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 She does have increasing pain over the right hip and down her right leg. She does get benefit in her back pain from previous epidural steroid injections. This pain is somewhat migrated in the distribution of the sciatic nerve. She is tender over her right SI joint. She does have a positive Hardik's test on the right side. She is positive Moses test on the right side. She is positive SI joint compression test on the right side. She has a positive distraction test on the right side. We will plan on right SI joint injection under fluoroscopy today. Procedure Details:: Right SI joint injection under fluoroscopy Informed consent was obtained and the risks and benefits of the procedure was going to the patient. Patient was taken to the procedure room. Patient was placed prone on the procedure table. The right hip was prepped using ChloraPrep. The skin and subcutaneous tissues were anesthetized using lidocaine. I placed a 22-gauge spinal needle into the inferior aspect of the right SI joint. Needle placement was confirmed with dye. After this we injected 5 mL bupivacaine 0.25% and Depo-Medrol 40 mg into the right SI joint. The patient tolerated the procedure well with no complication. Plan and Disposition:: We will follow-up with her in 2 weeks. Will reevaluate her symptoms at that time.
[2021-11-08 11:10] VITALS: BP 143/87; PULSE 91; RESP 20; O2SAT 98
== END 2021-11-08 11:10 | disposition home or self-care (01) ==
PROVIDERS: Visit Provider Anesthesiology
DX: M46.1 Sacroiliitis, not elsewhere classified (principal); Z72.0 Tobacco use; Z88.0 Allergy status to penicillin; Z88.6 Allergy status to analgesic agent
CPT/HCPCS: 27096; G0260; Q9966

== ENCOUNTER 2021-12-20 14:03 | Day surgery (SDC) | payer OTHER, SELFPAY ==
--- NOTE | 2021-12-20 14:12 | HMH.PMPROC ---
- Procedure Date: 12/20/21 Time: 14:12 Anesthesiologist:: Timbo Navas CRNA Complications:: None Pre-procedure Diagnosis:: Right sacroiliitis Post-procedure Diagnosis:: Same Indications for Procedure:: Patient is a pleasant 31-year-old white female that is responded well to SI joint injections in the past. She has extreme point tenderness over the right SI joint. Patient rates the pain 8/10. Pain increases when standing or sitting for any length of time. Procedure Details:: Procedure: Right sacroliliac joint injection under fluoroscopy Informed consent was obtained and the risk and benefits of the procedure were explained to the patient.~ The patient was taken to the procedure room and noninvasive monitors were placed including noninvasive blood pressure cuff and pulse oximeter.~ The patient was placed prone on the procedure table.~ The~ right hip was cleansed using Betadine as a cleansing solution.~ C-arm fluorosocpy was used to view the right SI joint.~ The skin and subcutaneous tissues were anesthetized using Lidocaine 1.5% and a 25-gauge needle.~ After this, a 22-gauge spinal needle was inserted under fluoroscopic guidance into the inferior aspect of the right SI joint.~ Omnipaque dye was injected and a good spread was seen throughout the joint.~ After this, approximately 5 mL of bupivacaine 0.25% and Depo-Medrol 40 mg was incrementally injected into the sacroiliac joint.~ The patient tolerated the procedure well with no complications.~ The patient was observed in the Pain Clinic, then discharged home neurologically intact.~ Plan and Disposition:: Patient had given decrease in pain in the right SI joint area following injection. She was discharged from clinic without issue. She will return to see us in the clinic for follow-up.
[2021-12-20 14:13] VITALS: BP 142/82; PULSE 90; RESP 16; TEMP 36.7; O2SAT 100; BMI 26.6
[2021-12-20 14:18] VITALS: BP 150/84; PULSE 81; RESP 20
[2021-12-20 14:19] VITALS: BP 150/84; PULSE 84; RESP 20
[2021-12-20 14:22] VITALS: BP 140/80; PULSE 88; RESP 18; O2SAT 100
== END 2021-12-20 14:24 | disposition home or self-care (01) ==
LOC: SC.PAINP 14:04
PROVIDERS: PCP Internal Medicine Adolescent Medicine; Visit Provider Nurse Anesthetist, Certified Registered
DX: M46.1 Sacroiliitis, not elsewhere classified (principal); Z88.0 Allergy status to penicillin; Z88.6 Allergy status to analgesic agent
CPT/HCPCS: 27096; G0260; J1030

== ENCOUNTER → 2022-04-16 19:20 | Outpatient (CLI) | payer OTHER, SELFPAY ==
[2022-04-16 19:32] VITALS: BMI 23.3
== END ==
LOC: OUTP 19:21 → INF 19:28
PROVIDERS: Visit Provider Nurse Practitioner
DX: T78.40XA Allergy, unspecified, initial encounter (principal)
CPT/HCPCS: J0696

== ENCOUNTER → 2022-06-19 10:26 | Outpatient (CLI) | payer OTHER, SELFPAY ==
[2022-06-19 10:38] VITALS: BMI 26.6
== END | disposition home or self-care (01) ==
PROVIDERS: PCP Internal Medicine Adolescent Medicine; Visit Provider Nurse Practitioner Family
DX: M54.30 Sciatica, unspecified side (principal)
CPT/HCPCS: 96372